=== PATIENT | female | born 2000 | race African-American/Black ===

== ENCOUNTER 2021-02-17 09:24 | Emergency (ER) | payer OTHER ==
[2021-02-17 09:35] VITALS: BP 106/65; PULSE 77; TEMP 98; BMI 26.2
== END 2021-02-17 10:27 | disposition home or self-care (01) ==
LOC: JERFT 09:24
DX: Z11.52 Encounter for screening for COVID-19 (principal)
CPT/HCPCS: C9803; Q3014-GT; U0003; U0005